=== PATIENT | female | born 1990 | race Caucasian/White ===

== ENCOUNTER 2024-03-08 10:59 | Day surgery (SDC) | payer OTHER ==
[~2024-03-08] VITALS: Ht 165.1 cm; Wt 85.5 kg
[2024-03-08] MEDS ORDERED: LR 1,000 ML IV SCH ×3 (11:20→15:05)
[2024-03-08] MEDS: OXYMETAZOLINE 0.05% NASAL SPRAY (AFRIN) As Ordered ONE (13:45)
[2024-03-08] MEDS ORDERED: ROCURONIUM BROMIDE 50MG/5ML VIAL As Ordered ONE (13:47)
[2024-03-08] MEDS ORDERED: MIDAZOLAM INJ 2MG/2ML VIAL As Ordered ONE (13:47)
[2024-03-08] MEDS ORDERED: SUGAMMADEX SODIUM 500 MG/5 ML VIAL (BRIDION) As Ordered ONE (13:47)
[2024-03-08] MEDS ORDERED: propofoL 200 MG/20 ML VIAL As Ordered ONE (13:47)
[2024-03-08] MEDS ORDERED: fentaNYL 100 MCG/2 ML INJECTION As Ordered ONE (13:47)
[2024-03-08] MEDS ORDERED: LIDOCAINE 2% 100MG/5ML SDV (FOR ANES.) As Ordered ONE (13:47)
[2024-03-08] MEDS ORDERED: ONDANSETRON 4MG 2ML VIAL As Ordered ONE (13:50)
[2024-03-08] MEDS ORDERED: METOCLOPRAMIDE INJ 10MG/2ML VIAL As Ordered ONE (14:09)
[2024-03-08] MEDS ORDERED: ACETAMINOPHEN 1000MG 100ML IV BAG As Ordered ONE (14:15)
[2024-03-08] MEDS ORDERED: HYDROmorphone HCL 2MG/ML 1ML VIAL As Ordered ONE (14:17)
[2024-03-08] MEDS ORDERED: oxyCODONE 5MG TAB PO PRN (14:50)
[2024-03-08] MEDS ORDERED: METOCLOPRAMIDE INJ 10MG/2ML VIAL IV PRN (14:50)
[2024-03-08] MEDS ORDERED: fentaNYL 100 MCG/2 ML INJECTION IV PRN (14:50)
[2024-03-08] MEDS ORDERED: ONDANSETRON 4MG 2ML VIAL IV PRN (14:50)
[2024-03-08] MEDS: fentaNYL 100 MCG/2 ML INJECTION IV PRN (15:00)
[2024-03-08] MEDS ORDERED: HYDROcodone/APAP LIQUID 7.5-325MG 15ML UDC (LORTAB ELIXIR) PO PRN (15:05)
[2024-03-08] MEDS: traMADol 50 MG TAB PO ONE (15:20)
[2024-03-08 16:43] VITALS: BP 132/77; TEMP 97.2; O2SAT 99
== END 2024-03-08 17:04 | disposition home or self-care (01) ==
LOC: M SDC 10:59
PROVIDERS: ATTEND Otolaryngology
DX: J35.03 Chronic tonsillitis and adenoiditis (principal); Z72.0 Tobacco use
CPT/HCPCS: 42821; 81025; 88302; J0131; J0665; J1100; J1170; J2250; J2405; J2765; J3010